=== PATIENT | male | born 1965 | race Caucasian/White ===

== ENCOUNTER 2020-05-27 14:05 | Inpatient (IN) | payer OTHER ==
[~2020-05-27] VITALS: Ht 167.6 cm; Wt 90.2 kg
[~2020-05-27 14:05] MED LIST: BACTRIM DS TAB1 EACH PO; HYDROCODONE-AP1 EAC6 PO; NORCO 5-325 TA1 EACH PO
[2020-05-27 14:14] VITALS: BP 162/81
[2020-05-27] MEDS ORDERED: CARVEDILOL25 MG PO (14:18)
[2020-05-27] MEDS ORDERED: ASA81BEC PO (14:19)
[2020-05-27] MEDS ORDERED: CARVEDILOL12.5 MG PO (14:20)
[2020-05-27] MEDS ORDERED: CHOLESTEROL PO (14:21)
[2020-05-27 14:47] LABS: ABSOLUTE BASOPHILS 0.1 thou/uL (0.0-0.2); ABSOLUTE EOSINOPHILS 0.2 thou/uL (0.0-0.7); ABSOLUTE LYMPHOCYTES 2.7 thou/uL (0.8-5.3); ABSOLUTE MONOCYTES 0.7 thou/uL (0.0-1.2); ABSOLUTE NEUTROPHILS 4.3 thou/uL (1.6-8.1); EOSINOPHILS 2.7 %; HEMATOCRIT 41.6 % (42.0-52.0); HEMOGLOBIN 13.9 gm/dL (14.0-18.0); LYMPHOCYTES 34.2 %; MCH 28.5 pg (26.0-34.0); MCHC 33.5 g/dL (28.0-37.0); MCV 85.2 fL (80.0-100.0); MONOCYTES 8.6 %; MPV 9.8 fl. (7.2-11.1); NUCLEATED RBCS 0 /100WBC; PLATELET COUNT* 236 thou/uL (150-400); POLYS 53.5 %; RBC 4.89 mil/uL (4.50-6.00); RDW-CV 14.4 % (10.5-14.5)
[2020-05-27 14:56] LABS: APTT 23.6 Seconds (25.0-31.3); CALCIUM 8.8 mg/dL (8.5-10.1); CREATININE 1.1 mg/dL (0.6-1.3); POTASSIUM 5.8 mmol/L (3.5-5.1); PROTIME 10.9 Seconds (9.20-11.50)
[2020-05-27 15:01] LABS: ALBUMIN 3.8 g/dL (3.4-5.0); TOTAL BILIRUBIN 0.7 mg/dL (<0.1-1.0); TOTAL PROTEIN 7.9 g/dL (6.4-8.2)
--- NOTE | 2020-05-27 16:23 | EKG ---
[place] [address] ELECTROCARDIOGRAM REPORT Name: BRIELLE VASQUEZ Room: [facility]#: [id number] Admission: 05/27/20 Attend Phys: Discharge: Date of : 63 Date of Service: 05/27/20 1419 Report #: [id number] THIS REPORT FOR: //name// [facility] ED Test Date: 2020-05-27 Test Time: 14:19:49 Pat Name: BRIELLE VASQUEZ Department: Room: Gender: Sales Service Rep: : 1965 Requested By: Mahnaz Norris Order Number: [id number] MD: Austin Diaz Measurements Intervals [place] Rate: 53 P: 59 MN: 154 QRS: 42 QRSD: 103 T: 35 QT: 407 QTc: 383 Interpretive Statements Sinus bradycardia Low voltage, precordial leads No previous ECG available for comparison Electronically Signed On 05-27-2020 16:23:09 ELECTRICAL CAD TECHNICIAN by Austin Diaz [email or web address] <ELECTRONICALLY SIGNED> By: Austin Diaz MD, [facility] 05/27/20 1623 D: [id number] Austin Diaz MD, FACC /EPI
[2020-05-27 16:34] LABS: ABSOLUTE BASOPHILS 0.1 thou/uL (0.0-0.2); ABSOLUTE EOSINOPHILS 0.2 thou/uL (0.0-0.7); ABSOLUTE LYMPHOCYTES 2.6 thou/uL (0.8-5.3); ABSOLUTE MONOCYTES 0.6 thou/uL (0.0-1.2); ABSOLUTE NEUTROPHILS 3.7 thou/uL (1.6-8.1); BASOPHILS 0.8 %; EOSINOPHILS 2.6 %; HEMATOCRIT 37.5 % (42.0-52.0); HEMOGLOBIN 12.6 gm/dL (14.0-18.0); LYMPHOCYTES 36.6 %; MCH 28.7 pg (26.0-34.0); MCHC 33.7 g/dL (28.0-37.0); MCV 85.4 fL (80.0-100.0); MONOCYTES 7.9 %; MPV 9.6 fl. (7.2-11.1); NUCLEATED RBCS 0 /100WBC; PLATELET COUNT* 203 thou/uL (150-400); POLYS 52.1 %; RBC 4.39 mil/uL (4.50-6.00); RDW-CV 14.4 % (10.5-14.5)
[2020-05-27] MEDS ORDERED: LIPITOR80 MG PO (17:04)
[2020-05-27] MEDS ORDERED: TRADJENTA5 MG (17:04)
[2020-05-27] MEDS ORDERED: CIALIS5 MG PO (17:05)
[2020-05-27 18:29] LABS: HEMATOCRIT 38.6 % (42.0-52.0)
[2020-05-27 18:53] VITALS: BP 130/72
[2020-05-27 20:54] VITALS: BP 124/70
[2020-05-27] MEDS ORDERED: AVAPRO 150 MG150 M1 PO (22:16)
[2020-05-28 00:07] LABS: URINE BILIRUBIN NEGATIVE (Negative); URINE BLOOD TRACE (Negative); URINE CLARITY CLEAR; URINE COLOR STRAW; URINE GLUCOSE-RANDOM NEGATIVE (Negative); URINE KETONES NEGATIVE (Negative); URINE LEUKOCYTES-REFLEX NEGATIVE (Negative); URINE NITRITE-REFLEX NEGATIVE (Negative); URINE PROTEIN NEGATIVE (Negative); URINE SPECIFIC GRAVITY 1.015 (1.005-1.030); URINE UROBILINOGEN 0.2 E.U./dl (0.2-1.0)
[2020-05-28 00:12] VITALS: BP 130/79
[2020-05-28 01:50] LABS: ABSOLUTE EOSINOPHILS 0.2 thou/uL (0.0-0.7); ABSOLUTE MONOCYTES 0.6 thou/uL (0.0-1.2); ABSOLUTE NEUTROPHILS 4.3 thou/uL (1.6-8.1); BASOPHILS 0.4 %; EOSINOPHILS 2.6 %; HEMATOCRIT 37.9 % (42.0-52.0); MCH 28.9 pg (26.0-34.0); MCHC 34.3 g/dL (28.0-37.0); MCV 84.4 fL (80.0-100.0); MONOCYTES 7.4 %; MPV 9.7 fl. (7.2-11.1); NUCLEATED RBCS 0 /100WBC; PLATELET COUNT* 183 thou/uL (150-400); POLYS 52.6 %; RBC 4.49 mil/uL (4.50-6.00); RDW-CV 14.4 % (10.5-14.5); WBC 8.2 thou/uL (4.0-11.0)
[2020-05-28 01:53] LABS: CALCIUM 8.7 mg/dL (8.5-10.1); CREATININE 1.2 mg/dL (0.6-1.3)
[2020-05-28 01:54] LABS: POTASSIUM 3.8 mmol/L (3.5-5.1)
[2020-05-28 04:40] VITALS: BP 122/77
--- NOTE | 2020-05-28 05:21 | NUR ---
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 HE IS ABLE TO COMMUNICATE HIS NEEDS TO STAFF EFFECTIVELY. HE HAS DENIED THE NEED FOR PAIN MEDICATION UP TO THIS TIME.
[2020-05-28 08:30] VITALS: BP 128/77
[2020-05-28 09:27] LABS: HEMOGLOBIN 13.2 gm/dL (14.0-18.0)
[2020-05-28 10:31] VITALS: BP 128/77
[2020-05-28 10:33] VITALS: BP 128/77
--- NOTE | 2020-05-28 11:21 | NUR ---
PT TO DISCHARGE HOME AND FOLLOW-UP WITH GI OUTPATIENT PT STATED HE WOULD TAKE HIS MEDS AT HOME SINCE HE HAD BEEN NPO AND ALL HIS MEDS WEREN'T IN THERE ANYWAY. PT STATED HE WAS STILL HAVING BLOODY STOOLS AND THAT IF IT CONTINUED HE WOULD BE BACK IN THE ER. HGB WENT UP TO 13.0 TODAY AND POTASSIUM IS IN NORMAL RANGE NOW ALSO. GAVE PT GI NUMBER THAT SAW HIM TODAY NO OTHER CONCERNS AT THIS TIME
== END 2020-05-28 11:25 | disposition home or self-care (01) | DRG 378 ==
LOC: M.ERS 14:05 → M.2W 16:54 → M.TBA-ER 16:54 → M.2W 19:06
PROVIDERS: Nurse Practitioner Family; ADMIT Internal Medicine; ATTEND Internal Medicine
DX: K57.31 Diverticulosis of large intestine without perforation or abscess with bleeding (principal); D62 Acute posthemorrhagic anemia; K64.9 Unspecified hemorrhoids; I25.10 Atherosclerotic heart disease of native coronary artery without angina pectoris; E87.5 Hyperkalemia; E66.01 Morbid (severe) obesity due to excess calories; Z20.822 Contact with and (suspected) exposure to COVID-19; Z95.5 Presence of coronary angioplasty implant and graft; Z79.82 Long term (current) use of aspirin; Z79.899 Other long term (current) drug therapy; Z88.1 Allergy status to other antibiotic agents; Z87.891 Personal history of nicotine dependence; Z68.32 Body mass index [BMI] 32.0-32.9, adult